=== PATIENT | female | born 1940 | race Caucasian/White ===

== ENCOUNTER 2022-07-07 08:24 | Outpatient (CLI) | payer MEDICARE | END 2022-07-07 08:25 | disposition home or self-care (01) | LOC: CSHWCC 08:24 | PROVIDERS: ATTEND Nurse Practitioner Family | DX: R60.0 Localized edema (principal); I70.248 Atherosclerosis of native arteries of left leg with ulceration of other part of lower leg; I70.262 Atherosclerosis of native arteries of extremities with gangrene, left leg; L97.423 Non-pressure chronic ulcer of left heel and midfoot with necrosis of muscle; L97.523 Non-pressure chronic ulcer of other part of left foot with necrosis of muscle; I70.245 Atherosclerosis of native arteries of left leg with ulceration of other part of foot; L97.529 Non-pressure chronic ulcer of other part of left foot with unspecified severity; L97.521 Non-pressure chronic ulcer of other part of left foot limited to breakdown of skin; L89.323 Pressure ulcer of left buttock, stage 3 | CPT/HCPCS: 97139; G0463; 99205 ==